=== PATIENT | female | born 1935 | race Caucasian/White ===

== ENCOUNTER 2021-03-11 14:14 | Emergency (ER) | payer MEDICARE, SELFPAY ==
[2021-03-11 14:24] VITALS: BP 146/58; PULSE 90; RESP 14; TEMP 36.9; O2SAT 99
[2021-03-11 14:40] VITALS: BP 146/58; PULSE 90; RESP 14; TEMP 36.9; O2SAT 99
--- NOTE | 2021-03-11 15:01 | ED.GENADULT ---
HPI - General Adult General Chief complaint: Ear Stated complaint: Ear Pain Time Seen by Provider: 03/11/21 15:02 Source: patient Mode of arrival: ambulatory Limitations: no limitations History of Present Illness HPI narrative: Ilda Calderon is 85 yo female with a PMH of high cholesterol, HTN, potassium, GERD, osteoporosis, age-related macular degeneration, who comes to [facility] with cellulitis of the right lobe of ear that started 2 days ago. Patient has tried ice but has continued to get red and swollen. Patient states that wearing mask is aggravated the pain of her ear lobe Related Data Home Medications Medication Instructions Recorded Confirmed ascorbic acid (vitamin C) 500 mg PO DAILY 03/11/21 03/11/21 atorvastatin 10 mg PO DAILY 03/11/21 03/11/21 denosumab [Prolia] 60 mg SUBCUT [id number] 03/11/21 03/11/21 omeprazole 20 mg PO DAILY 03/11/21 03/11/21 potassium chloride 10 meq PO DAILY 03/11/21 03/11/21 ranibizumab [Lucentis] 0.3 mg INTRAVITREAL ONCE 03/11/21 03/11/21 triamterene-hydrochlorothiazid 1 tablet PO DAILY 03/11/21 03/11/21 Allergies Allergy/AdvReac Type Severity Reaction Status Date / Time No Known Allergies Allergy Verified 03/11/21 14:39 Review of Systems Review of Systems: Narrative: CONSTITUTIONAL: Denies fever, chills, sweats. EYES: Denies visual changes, redness, discharge. ENT: Denies rhinorrhea, congestion, sore throat, otalgia. CARDIOVASCULAR: Denies chest pain, palpitations, edema. RESPIRATORY: Denies dyspnea, wheezing, cough GASTROINTESTINAL: Denies abdominal pain, nausea, vomiting, diarrhea. GENITOURINARY: Denies dysuria, hematuria, abnormal discharge SKIN: Denies rash or itching. R ear lobe swelling and pain NEUROLOGIC: Denies numbness, or focal weakness. PSYCHIATRIC: Denies anxiety or depression. [facility] Past Medical History Medical History GERD (gastroesophageal reflux disease) High cholesterol HTN (hypertension) Macular degeneration Osteoporosis Social History Social History (Updated 03/11/21 @ 15:39 by Monica English CNP) Smoking status: Never smoker Alcohol intake: current Comments At time of signature, I agree with nursing past medical, surgical, social and family history. There is no relevant family history pertinent to the presenting complaint. Patient has a history of HTN Exam Narrative: Exam Narrative: GENERAL: This is a well-nourished, well-developed patient, in mild distress. HEAD: normocephalic, atraumatic. EYES: Sclera clear/white. Vision is grossly intact. EARS: External ears normal on L, edema, erythema, warmth to R lower ear lobe, auditory canal clear and without drainage, Hearing grossly intact. NOSE: External nose normal without nasal discharge, nares without redness, THROAT: Mucous membranes moist, NECK: Neck supple, non-tender CARDIOVASCULAR: Regular rate and rhythm without murmurs, gallops, or rubs. RESPIRATORY: Clear to auscultation. Breath sounds equal bilaterally. No wheezes, rales, or rhonchi. GASTROINTESTINAL: Abdomen soft, non-tender, SKIN: warm, intact with no suspicious lesions or rash, good texture and turgor. NEURO: awake, alert, and oriented to person, place and time. There were no obvious focal neurologic abnormalities. Steady gait EXTREMITIES: Normal range of motion. BACK: Nontender without deformity Course Course Emergency Course: Patient comes to [facility] with complaints of right earlobe swelling x2 days that is gotten red hot painful Needle insertion the lower lobe with bloody discharge started on cephalexin and lidocaine ointment Keep clean and dry and now insertion of earrings until cellulitis clears Vital Signs Vital signs: Vital Signs Temperature 98.5 F 03/11/21 14:24 Pulse Rate 90 03/11/21 14:24 Respiratory Rate 14 03/11/21 14:24 Blood Pressure 146/58 H 03/11/21 14:24 Pulse Oximetry 99 03/11/21 14:24 Temperature 98.5 F 03/11/21 14:
== END 2021-03-11 15:29 | disposition home or self-care (01) ==
PROVIDERS: Emergency Provider Nurse Practitioner; PCP Internal Medicine
DX: L03.818 Cellulitis of other sites (principal); K21.9 Gastro-esophageal reflux disease without esophagitis; E78.00 Pure hypercholesterolemia, unspecified; I10 Essential (primary) hypertension; H35.30 Unspecified macular degeneration; M81.0 Age-related osteoporosis without current pathological fracture
CPT/HCPCS: 10160; 99213; G0463

== ENCOUNTER 2023-10-03 08:10 | Emergency (ER) | payer MEDICARE, SELFPAY ==
--- NOTE | 2023-10-03 08:15 | ED.URI ---
HPI - URI/Sore Throat General Chief Complaint: Upper Respiratory Infection Stated Complaint: throat/chest congestion Time Seen by Provider: 10/03/23 08:37 Source: patient and RN notes reviewed Mode of arrival: ambulatory Limitations: no limitations History of Present Illness HPI Narrative: 88-year-old female presents with concern for cough, sore throat chest congestion. Reports 3-4 days symptoms. She denies fever, aches, chills, sweats. Reports mild clear runny nose. Reports she does not want to be sick for Alejandrina LINN elicited complaint: cough Related Data Home Medications Medication Instructions Recorded Confirmed ascorbic acid (vitamin C) 500 mg 500 mg PO DAILY 03/11/21 10/03/23 tablet atorvastatin 10 mg tablet 10 mg PO DAILY 03/11/21 10/03/23 denosumab 60 mg/mL subcutaneous 60 mg subcut [id number] 03/11/21 10/03/23 syringe (Prolia) omeprazole 20 mg tablet,delayed 20 mg PO DAILY 03/11/21 10/03/23 release potassium chloride 10 mEq 10 meq PO DAILY 03/11/21 10/03/23 tablet,extended release ranibizumab 0.5 mg/0.05 mL 0.3 mg intravitreal ONCE 03/11/21 10/03/23 intravitreal syringe (Lucentis) triamterene 37.5 1 tablet PO DAILY 03/11/21 10/03/23 mg-hydrochlorothiazide 25 mg tablet Allergies Allergy/AdvReac Type Severity Reaction Status Date / Time No Known Allergies Allergy Verified 10/03/23 08:31 Review of Systems Review of Systems: CONSTITUTIONAL: Denies malaise, chills, sweats, or fever. EYES: Denies visual changes, redness, or discharge. ENT: Reports rhinorrhea, sore throat. Denies congestion, sinus pain, otalgia CARDIOVASCULAR: Denies chest pain, palpitations, or edema. RESPIRATORY: Reports cough chest congestion. Denies dyspnea. GASTROINTESTINAL: Denies abdominal pain, nausea, vomiting, diarrhea SKIN: Denies rash or itching. MUSCULOSKELETAL: Denies myalgia. NEUROLOGIC: Denies headache. All systems reviewed & are unremarkable except as noted in HPI and below PMFSH Past Medical History Medical History GERD (gastroesophageal reflux disease) High cholesterol HTN (hypertension) Macular degeneration Osteoporosis Social History Social History (Updated 03/11/21 @ 15:39 by Monica English, TRANSPORT RN) Smoking status: Never smoker Alcohol intake: current Comments At time of signature, agree with nursing past medical, surgical, social and family history. There is no relevant family history pertinent to the presenting complaint Exam Narrative: GENERAL: Well-appearing, well-nourished, and in no acute distress. HEAD: Normocephalic EYES: PERRLA, conjunctivae clear ENT: Nares clear, clear discharge. Mucous membranes moist. TM pearly gurrola with sharp light reflex bilaterally; no tragal tenderness. Oropharynx not erythematous without lesions. Tonsils not enlarged and without exudate, no drooling, no hoarseness, no trismus, uvula midline. NECK: Supple. No lymphadenopathy CHEST: Clear to auscultation, breath sounds equal. No wheezing, rhonchi, rales, or stridor. No respiratory distress, speaks in full sentences. HEART: Regular rate and rhythm. No murmur heard. SKIN: Warm, dry, no rash. NEURO: Alert and oriented x3. PSYCH: Normal mood and affect Course Course Emergency Course: Patient is aware of diagnosis, understands and agrees to treatment plan. Anticipatory guidance given. Patient agrees to follow-up as directed and is aware of reasons to seek care at the emergency department. Portions of this record may have been created with voice recognition software Level of Care: Express Care Visit Vital Signs Vital signs: Reviewed. MDM - URI/Sore Throat MDM Narrative Medical decision making narrative: Differential diagnosis considered: Saleem virus, strep pharyngitis, allergic rhinitis, upper respiratory tract infection, sinusitis, rhinosinusitis, nasopharyngitis. viral pharyngitis, otitis media, otitis externa, pneumonia, bronchitis,
[2023-10-03 08:23] VITALS: BP 137/60; PULSE 108; RESP 16; TEMP 37.2; O2SAT 97
== END 2023-10-03 08:48 | disposition home or self-care (01) ==
PROVIDERS: Emergency Provider Nurse Practitioner
DX: J06.9 Acute upper respiratory infection, unspecified (principal); K21.9 Gastro-esophageal reflux disease without esophagitis; E78.00 Pure hypercholesterolemia, unspecified; I10 Essential (primary) hypertension; H35.30 Unspecified macular degeneration; M81.0 Age-related osteoporosis without current pathological fracture
CPT/HCPCS: 99213; G0463